=== PATIENT | female | born 1975 | race Hispanic/Latino ===

== ENCOUNTER 2017-03-15 22:43 | Emergency (ER) | payer BC ==
[2017-03-15 22:54] VITALS: BP 131/77; PULSE 72; RESP 16; TEMP 97.7; O2SAT 99
--- NOTE | 2017-03-15 23:47 | ED PDOC ---
HPI: CCC, URI, Sore Throat Time Seen by Provider: 03/15/17 22:56 Chief Complaint (Nursing): Cough, Cold, Congestion Chief Complaint (Provider): Cough, cold, congestion History Per: Patient History/Exam Limitations: no limitations Onset/Duration Of Symptoms: Days (x1 week) Current Symptoms Are (Timing): Still Present Location Of Pain: None Sick Contacts (Context): None Associated Symptoms: Fever (subjective), Chills (subjective), Cough Ear Symptoms: Bilateral: None Severity: Mild Additional Complaint(s): Estefanía Swanson is a 42 year old female, with a past medical history of bilateral Pneumonia last year, who presents to the emergency department complaining of cough, subjective fever and chills onset for x1 week. She denies any other medical complaints. PMD: None provided. Past Medical History Reviewed: Historical Data, Nursing Documentation, Vital Signs Vital Signs: Last Vital Signs Temp 97.7 F 03/15/17 22:51 Pulse 72 03/15/17 22:51 Resp 16 03/15/17 22:51 BP 131/77 03/15/17 22:51 Pulse Ox 99 03/15/17 23:58 - Medical History PMH: Pneumonia Denies: HIV, Chronic Kidney Disease - Surgical History Surgical History: No Surg Hx - Family History Family History: States: Unknown Family Hx - Home Medications Home Medications: Ambulatory Orders Medication Instructions Recorded Azithromycin [Z-Herminio] 250 mg PO DAILY #6 tab 03/16/17 Fluticasone Nasal [Flonase] 1 actuation NS BID #1 spr 03/16/17 - Allergies Allergies/Adverse Reactions: Allergies Allergy/AdvReac Type Severity Reaction Status Date / Time No Known Allergies Allergy Verified 05/12/15 18:59 Review of Systems ROS Statement: Except As Marked, All Systems Reviewed And Found Negative Constitutional: Positive for: Fever (subjective), Chills (subjective) Respiratory: Positive for: Cough Physical Exam - Reviewed Nursing Documentation Reviewed: Yes Vital Signs Reviewed: Yes - Physical Exam Appears: Positive for: Well, Non-toxic Head Exam: Positive for: ATRAUMATIC, NORMAL INSPECTION Skin: Positive for: Normal Color, Warm, Dry Eye Exam: Positive for: Normal appearance, EOMI, PERRL ENT: Positive for: Normal ENT Inspection Neck: Positive for: Normal, Painless ROM, Supple Cardiovascular/Chest: Positive for: Regular Rate, Rhythm Respiratory: Positive for: Normal Breath Sounds (active cough during exam). Negative for: Respiratory Distress Gastrointestinal/Abdominal: Positive for: Normal Exam, Soft. Negative for: Tenderness Back: Positive for: Normal Inspection. Negative for: L CVA Tenderness, R CVA Tenderness Extremity: Positive for: Normal ROM. Negative for: Pedal Edema, Deformity, Swelling Neurologic/Psych: Positive for: Alert, Oriented - ECG O2 Sat by Pulse Oximetry: 99 (RA) Pulse Ox Interpretation: Normal Medical Decision Making Medical Decision Making: Initial Impression: Viral infection Initial Plan: --Chest two views (PA/LAT) [RAD] --reevaluation 23:55 --Upon provider evaluation patient is medically stable, and requires no further treatment in the ED at this time. Patient will be discharged home. Counseling was provided and all questions were answered regarding diagnosis and need for follow up. There is agreement to discharge plan. Return if symptoms persist or worsen. Told patient to monitor for 48 hours for high fevers, will give rx for azithromycin in case fever develops and cough worsens but not to fill if symptoms improve. Scribe Attestation: Documented by Jimbo Finney, acting as a scribe for Brandan Parish MD Provider Scribe Attestation: All medical record entries made by the Scribe were at my direction and personally dictated by me. I have reviewed the chart and agree that the record accurately reflects my personal performance of the history, physical exam, medical decision making, and the department course for this patient. I have also personally directed, reviewed, and agree with the discharge instructions and disposition. Disposition - Clinical Impression Clinical Impression: Cough - Patient ED Disposition Is Patient to be Admitted: No - Disposition Referrals: [facility] [place] [Outside] Disposition: Routine/Home Disposition Time: 23:55 Condition: IMPROVED Prescriptions: Azithromycin [Z-Herminio] 250 mg PO DAILY #6 tab Fluticasone Nasal [Flonase] 1 actuation NS BID #1 spr Instructions: Upper Respiratory Infection (ED) Forms: [employer] (Vietnamese)
--- NOTE | 2017-03-16 10:52 | RAD ---
HISTORY: hx of bilateral PNA, p/w cough, subj fever COMPARISON: Chest radiograph dated 05/08/2016 TECHNIQUE: Chest PA and lateral FINDINGS: LUNGS: No active pulmonary disease. PLEURA: No significant pleural effusion identified. No pneumothorax apparent. CARDIOVASCULAR: Normal. OSSEOUS STRUCTURES: No significant abnormalities. VISUALIZED UPPER ABDOMEN: Normal. OTHER FINDINGS: None. IMPRESSION: No active disease.
== END 2017-03-16 00:31 | disposition home or self-care (01) ==
LOC: H.ER 22:43
DX: B34.9 Viral infection, unspecified (principal)

== ENCOUNTER 2017-12-28 11:02 | Emergency (ER) | payer BC ==
[2017-12-28 11:35] VITALS: BP 110/67; PULSE 91; RESP 20; TEMP 98.4; O2SAT 98
--- NOTE | 2017-12-28 12:28 | ED PDOC ---
HPI: Influenza Time Seen by Provider: 12/28/17 12:02 Chief Complaint: Cough, Cold, Congestion Chief Complaint (Provider): Cough, Cold, Congestion History Per: Patient Exam Limitations: no limitations Have you had recent travel within the past 21 days to any of: No Onset/Duration Of Symptoms: Days (x3 days ago ) Symptoms include: fever (tactile), bodyaches, sore throat, cough, nasal congestion. denies: chest pain Sick Contacts (Context): None Additional complaint(s):: Estefanía Gutierrez is a 42 year old female with a past medical history of bilateral pneumonia (2017), who presents to the emergency department complaining of having body ache, tactile fever, cough, sore throat, and nasal congestion, onset x3 days ago. Patient states that symptoms worsened over the weekend but have improved since this morning. She states she has taken "natural medications" such as mushroom extract and garlic but has not taken any Motrin or Tylenol. Patient further reports that she is planning to go to [place] tomorrow. She denies having any sick contact, recent travel, chest pain, shortness of breath, hemoptysis, or any other medical complaints. PMD: Dr. Destiny Miller Past Medical History Reviewed: Historical Data, Nursing Documentation, Vital Signs Vital Signs: Last Vital Signs Temp 98.4 F 12/28/17 11:31 Pulse 91 H 12/28/17 11:31 Resp 20 12/28/17 11:31 BP 110/67 12/28/17 11:31 Pulse Ox 98 12/28/17 11:31 - Medical History PMH: Pneumonia (bilateral ) Denies: HIV, Chronic Kidney Disease - Surgical History Surgical History: No Surg Hx - Family History Family History: States: Unknown Family Hx - Home Medications Home Medications: Ambulatory Orders Medication Instructions Recorded Azithromycin [Z-Herminio] 250 mg PO DAILY #6 tab 03/16/17 Fluticasone Nasal [Flonase] 1 actuation NS BID #1 spr 03/16/17 Azithromycin [Zithromax] 250 mg PO DAILY #6 tab 12/28/17 Promethazine DM [Phenergan DM 5 - 10 ml PO Q8 PRN #120 ml 12/28/17 Syrup] - Allergies Allergies/Adverse Reactions: Allergies Allergy/AdvReac Type Severity Reaction Status Date / Time No Known Allergies Allergy Verified 05/12/15 18:59 Review of Systems ROS Statement: Except As Marked, All Systems Reviewed And Found Negative Constitutional: Positive for: Fever (tactile ) ENT: Positive for: Nose Congestion Cardiovascular: Negative for: Chest Pain Respiratory: Positive for: Cough, Shortness of Breath, Other (sore throat). Negative for: Hemoptysis Musculoskeletal: Positive for: Other (bodyache ) Skin: Negative for: Rash Physical Exam - Reviewed Nursing Documentation Reviewed: Yes Vital Signs Reviewed: Yes - Physical Exam Appears: Positive for: Well Head Exam: Positive for: ATRAUMATIC, NORMOCEPHALIC Skin: Positive for: Normal Color, Warm, Dry Eye Exam: Positive for: Normal appearance, EOMI, PERRL ENT: Positive for: Normal ENT Inspection Neck: Positive for: Normal, Painless ROM, Supple Cardiovascular/Chest: Positive for: Regular Rate, Rhythm. Negative for: Murmur Respiratory: Positive for: Normal Breath Sounds. Negative for: Crackles, Rales, Respiratory Distress Gastrointestinal/Abdominal: Positive for: Normal Exam, Bowel Sounds, Soft. Negative for: Tenderness Back: Positive for: Normal Inspection. Negative for: L CVA Tenderness, R CVA Tenderness, Vertebral Tenderness Extremity: Positive for: Normal ROM. Negative for: Tenderness, Deformity, Swelling Neurologic/Psych: Positive for: Alert, Oriented (x3) Medical Decision Making Medical Decision Making: Initial Time: 12:21 Initial Plan: --Rapid strep Group A antigen --Influenza A B Rapid flu, rapid strep: negative. Results d/w patient. Scribe Attestation: Documented by Miguel Ashby, acting as a scribe for Xavier Tse Provider Scribe Attestation: All medical record entries made by the Scribe were at my direction and perso loly dictated by me. I have reviewed the chart and agree that the record accurately reflects my personal performance of the history, physical exam, medical decision making, and the department course for this patient. I have also personally directed, reviewed, and agree with the discharge instructions and disposition. - ECG O2 Sat by Pulse Oximetry: 98 (RA) Pulse Ox Interpretation: Normal Disposition - Clinical Impression Clinical Impression: Upper respiratory infection - Patient ED Disposition Is Patient to be Admitted: No - Disposition Disposition: Routine/Home Disposition Time: 13:43 Condition: STABLE Additional Instructions: ESTEFANÍA GUTIERREZ, thank you for letting us take care of you today. Your provider was Clint Albarado III, DO and you were treated for CONGESTION. The emergency medical care you received today was directed at your acute symptoms. If you were prescribed any medication, please fill it and take as directed. It may take several days for your symptoms to resolve. Return to the Emergency Department if your symptoms worsen, do not improve, or if you have any other problems. Please contact your doctor or call one of the physicians/clinics you have been referred to that are listed on the Patient Visit Information form that is included in your discharge packet. Bring any paperwork you were given at discharge with you along with any medications you are taking to your follow up visit. Our treatment cannot replace ongoing medical care by a primary care provider outside of the emergency department. Thank you for allowing the [facility] team to be part of your care today. If you had an X-Ray or CT scan: A Radiologist will review the ED reading if any change in treatment is needed we will contact you. If you had a blood, urine, or wound culture: It will take several days for the results, if any change in treatment is needed we will contact you. If you had an STI test: It will take 48 hours for the results. Please call after 1 week if you have not heard back. Prescriptions: Azithromycin [Zithromax] 250 mg PO DAILY #6 tab Promethazine DM [Phenergan DM Syrup] 5 - 10 ml PO Q8 PRN #120 ml PRN Reason: Cough Instructions: Viral Upper Respiratory Infection, Adult (DC) Forms: [employer] (Albanian)
== END 2017-12-28 13:47 | disposition home or self-care (01) ==
LOC: H.ER 11:02
DX: J06.9 Acute upper respiratory infection, unspecified (principal)

== ENCOUNTER 2018-05-22 03:39 | Emergency (ER) | payer BC ==
[2018-05-22 03:56] VITALS: BP 99/63; PULSE 78; TEMP 97.5; O2SAT 97
[2018-05-22 03:57] VITALS: BMI 19.8
[2018-05-22 04:01] VITALS: RESP 20
--- NOTE | 2018-05-22 05:16 | ED PDOC ---
HPI: Chest Pain Chief Complaint (Nursing): Chest Pain History Per: Patient History/Exam Limitations: no limitations Onset/Duration Of Symptoms: Days Quality: Burning, Pressure Additional Complaint(s): Pt is a 43 y/o female no pmhx presenting to ED with complaints of cough, congestion, chest pain, sob, and fevers. States for the past week she has had upper respiratory tract symptoms including congestion, productive cough (yellow sputum), subjective fevers, and occasional sob when walking many blocks. 2 days ago, she states she started experiencing chest pain localized to midsternum to which she describes as burning, radiating bilaterally, positional (worse when standing, better when lying flat), and described it as occasionally feeling like a belt wrapped around her heart. On ROS, she admits to urinary urgency, denies dysuria. PMD: Denies PMHX: Denies Hospitalizations: Pt was hospitalized in June 04 for Bilateral multifocal pneumonia and hyponatremia complications with ARDS Medications: Denies FMHx: Father from Pancreatic Ca Social: Denies smoking, alcohol, or drug use Past Medical History Reviewed: Historical Data, Nursing Documentation, Vital Signs Vital Signs: Last Vital Signs Temp 97.5 F L 05/22/18 03:58 Pulse 78 05/22/18 03:58 Resp 20 05/22/18 03:58 BP 99/63 L 05/22/18 03:58 Pulse Ox 97 05/22/18 03:58 - Medical History PMH: Pneumonia (bilateral ) Denies: HIV, Chronic Kidney Disease - Surgical History Other surgeries: Liposuction - Family History Family History: States: Unknown Family Hx - Living Arrangements Living Arrangements: With Family - Home Medications Home Medications: Ambulatory Orders Medication Instructions Recorded Azithromycin [Z-Herminio] 250 mg PO DAILY #6 tab 03/16/17 Fluticasone Nasal [Flonase] 1 actuation NS BID #1 spr 03/16/17 Azithromycin [Zithromax] 250 mg PO DAILY #6 tab 12/28/17 Promethazine DM [Phenergan DM 5 - 10 ml PO Q8 PRN #120 ml 12/28/17 Syrup] - Allergies Allergies/Adverse Reactions: Allergies Allergy/AdvReac Type Severity Reaction Status Date / Time No Known Allergies Allergy Verified 05/22/18 04:01 MELQUIADES Risk Score for UA/NSTEMI - MELQUIADES Risk Score Age > 64: NO 3 or more CAD Risk Factors: NO Known CAD (Stenosis greater than 50%): NO Aspirin use in past 7 days: NO Severe Angina: NO EKG ST changes greater than 0.5mm: NO Positive Cardiac Marker: NO MELQUIADES Score: 0 Risk %: 5% Wells Criteria for PE - Wells Criteria for Pulmonary Embolism Clinical Signs and Symptoms of DVT: No P.E is #1 Diagnosis, or Equally Likely: No Heart Rate >100: No Immobilization at least 3 days;Surgery previous 4 weeks: No Previous, objectively diagnosed PE or DVT: No Hemoptysis: No Malignancy w/treatment within 6 months, or palliative: No (Low risk for PE, not indicated for further studies) Total Score: 0 Review of Systems Constitutional: Positive for: Fever. Negative for: Chills ENT: Positive for: Nose Congestion. Negative for: Ear Pain, Ear Discharge Cardiovascular: Positive for: Chest Pain Respiratory: Positive for: Cough Gastrointestinal: Negative for: Nausea, Vomiting, Abdominal Pain, Diarrhea Genitourinary Female: Negative for: Dysuria Skin: Negative for: Rash Physical Exam - Physical Exam Appears: Positive for: No Acute Distress (comfortable appearing female with occassional phlegm cough) Head Exam: Positive for: NORMAL INSPECTION Skin: Positive for: Normal Color Eye Exam: Positive for: Normal appearance ENT: Positive for: Nasal Congestion. Negative for: Pharyngeal Erythema, Tonsillar Exudate, Tonsillar Swelling Neck: Positive for: Normal Cardiovascular/Chest: Positive for: Regular Rate, Rhythm. Negative for: Murmur Respiratory: Positive for: Normal Breath Sounds, Rhonchi (clears with cough). Negative for: Accessory Muscle Use, Crackles, Rales, Wheezing Gastrointestinal/Abdominal: Positive for: Normal Exam, Bowel Sounds, Soft. Negative for: Tenderness Extremity: Positive for: Capillary Refill. Negative for: Pedal Edema Neurologic/Psych: Positive for: Alert, Oriented - Laboratory Results Result Diagrams: 05/22/18 05:25 05/22/18 05:25 - ECG O2 Sat by Pulse Oximetry: 97 Medical Decision Making Medical Decision Making: Pt is a 43 y/o female no pmhx presenting to ED with complaints of cough, congestion, chest pain, sob, and fevers. EKG- 1st degree block, no ischemic changes Chest portable Probnp Troponin Labs and imaging reviewed- all normal. Discussed findings with patients. Declined any supportive medications, stating she would like to use her herbal medications instead. Advised to get rest, plenty of fluids, and Tylenol/Motrin prn for fevers. Likely a viral syndrome, not in window period for flu treatment anyway. Pt verbalized understanding. Disposition - Clinical Impression Clinical Impression: Viral syndrome, Upper respiratory infection Counseled Patient/Family Regarding: Studies Performed, Diagnosis, Need For Followup - Disposition [facility]] Disposition: Routine/Home Disposition Time: 07:28 Condition: FAIR Additional Instructions: Advised to get rest, plenty of fluids, and Tylenol/Motrin prn for fevers. F/U with PMD, Referral at [facility] given Instructions: Viral Upper Respiratory Infection, Adult (DC) Forms: [employer] (Malay)
[2018-05-22 05:52] LABS: BASO # 0.1 K/uL (0.0-0.2); BASO % 0.7 % (0.0-2.0); EOS # 0.1 K/uL (0.0-0.7); EOS % 1.1 % (0.0-4.0); HEMOGLOBIN 13.3 g/dL (12.0-16.0); LYMPH # 1.6 K/uL (1.0-4.3); LYMPH % 18.8 % (20.0-40.0); MEAN CELL VOLUME 96.8 fl (81.0-99.0); MEAN CORPUSCULAR HGB CONC 34.1 g/dL (33.0-37.0); MONO # 0.5 K/uL (0.0-0.8); NEUT # 6.3 K/uL (1.8-7.0); NEUT % 73.4 % (50.0-75.0); RBC 4.01 Mil/uL (3.80-5.20); RED CELL DISTRIBUTION WIDTH 12.5 % (11.5-14.5); WHITE BLOOD COUNT 8.5 K/uL (4.8-10.8)
[2018-05-22 06:03] LABS: SQUAMOUS EPITHIAL 4 /hpf (0-5); URINE BACTERIA RARE (<OCC); URINE BILIRUBIN NEGATIVE (NEGATIVE); URINE BLOOD NEGATIVE (NEGATIVE); URINE CLARITY CLOUDY (Clear); URINE COLOR AMBER (YELLOW); URINE GLUCOSE (UA) NEG (NEGATIVE); URINE LEUKOCYTE ESTERASE NEG Leu/uL (Negative); URINE PROTEIN NEGATIVE (NEGATIVE); URINE UROBILINOGEN 0.2-1.0 mg/dL (0.2-1.0)
[2018-05-22 06:04] LABS: BLOOD UREA NITROGEN 14 mg/dl (7-17); CALCIUM 9.3 mg/dL (8.4-10.2); GFR NON-AFRICAN AMERICAN > 60
[2018-05-22 06:16] LABS: B-TYPE NATRIURETIC PEPTIDE 75.6 pg/ml (0-450)
--- NOTE | 2018-05-22 11:23 | RAD ---
Date of service: 05/22/2018 HISTORY: cough COMPARISON: Chest radiograph dated 03/15/2017. TECHNIQUE: Chest PA and lateral FINDINGS: LUNGS: No active pulmonary disease. PLEURA: No significant pleural effusion identified. No pneumothorax apparent. CARDIOVASCULAR: No aortic atherosclerotic calcification present. Normal cardiac size. No pulmonary vascular congestion. OSSEOUS STRUCTURES: No significant abnormalities. VISUALIZED UPPER ABDOMEN: Normal. OTHER FINDINGS: None. IMPRESSION: No active disease.
== END 2018-05-22 07:51 | disposition home or self-care (01) ==
LOC: H.ER 03:39
DX: J11.1 Influenza due to unidentified influenza virus with other respiratory manifestations (principal); J06.9 Acute upper respiratory infection, unspecified

== ENCOUNTER 2018-07-16 07:14 | Emergency (ER) | payer BC ==
[2018-07-16 07:20] VITALS: BMI 20.7
--- NOTE | 2018-07-16 08:46 | ED PDOC ---
HPI: Abdomen Time Seen by Provider: 07/16/18 07:30 Chief Complaint (Nursing): Abdominal Pain Chief Complaint (Provider): Abdominal pain History Per: Patient History/Exam Limitations: no limitations Onset/Duration Of Symptoms: Days Outside of [place] travel?: No Location Of Pain/Discomfort: RLQ, LLQ Additional History Per: Patient Additional Complaint(s): 43yo female, otherwise well, comes to ER reporting lower abdominal/pelvic pain x 2 days. She reports the pain is constant and worse with movement. Patient has not taken any medications stating "I do not like taking pain medication." Otherwise, no fever, chills, chest pain, nausea, vomiting, diarrhea, vaginal bleeding or discharge. No additional complaints. PMD: None Abnormal Vaginal Bleeding: No Past Medical History Reviewed: Historical Data, Nursing Documentation, Vital Signs Vital Signs: Last Vital Signs Temp 97.5 F L 07/16/18 07:20 Pulse 62 07/16/18 07:20 Resp 17 07/16/18 07:20 BP 104/61 07/16/18 07:20 Pulse Ox 99 07/16/18 07:20 - Medical History PMH: Pneumonia (bilateral ) Denies: HIV, Chronic Kidney Disease - Surgical History Surgical History: No Surg Hx - Family History Family History: States: Unknown Family Hx - Home Medications Home Medications: Ambulatory Orders Medication Instructions Recorded Azithromycin [Z-Herminio] 250 mg PO DAILY #6 tab 03/16/17 Fluticasone Nasal [Flonase] 1 actuation NS BID #1 spr 03/16/17 Azithromycin [Zithromax] 250 mg PO DAILY #6 tab 12/28/17 Promethazine DM [Phenergan DM 5 - 10 ml PO Q8 PRN #120 ml 12/28/17 Syrup] - Allergies Allergies/Adverse Reactions: Allergies Allergy/AdvReac Type Severity Reaction Status Date / Time No Known Allergies Allergy Verified 05/22/18 04:01 Review of Systems ROS Statement: Except As Marked, All Systems Reviewed And Found Negative Constitutional: Negative for: Fever, Chills Cardiovascular: Negative for: Chest Pain Gastrointestinal: Positive for: Abdominal Pain. Negative for: Nausea, Vomiting, Diarrhea Genitourinary Female: Positive for: Pelvic Pain. Negative for: Dysuria, Frequency, Hematuria, Vaginal Discharge, Vaginal Bleeding, Rash Physical Exam - Reviewed Nursing Documentation Reviewed: Yes Vital Signs Reviewed: Yes - Physical Exam Appears: Positive for: Non-toxic, No Acute Distress Head Exam: Positive for: ATRAUMATIC, NORMAL INSPECTION, NORMOCEPHALIC Skin: Positive for: Normal Color Eye Exam: Positive for: Normal appearance Neck: Positive for: Supple Cardiovascular/Chest: Positive for: Regular Rate, Rhythm. Negative for: Tachycardia Respiratory: Positive for: Normal Breath Sounds. Negative for: Respiratory Distress Gastrointestinal/Abdominal: Positive for: Soft. Negative for: Tenderness, Guarding, Rebound Back: Positive for: Normal Inspection. Negative for: L CVA Tenderness, R CVA Tenderness Extremity: Positive for: Normal ROM. Negative for: Pedal Edema Neurological/Psych: Positive for: Awake, Alert, Oriented (x 3) - Laboratory Results Result Diagrams: 07/16/18 13:07 07/16/18 13:07 - ECG O2 Sat by Pulse Oximetry: 99 (RA) Pulse Ox Interpretation: Normal Medical Decision Making Medical Decision Makinyo female with lower abdominal pain Plan: -- Upreg -- Udip -- US Pelvis 1229 Pelvic exam done with SHAUN Haney as physician practice manager. Cervix with erythema and irritation; no vaginal discharge noted. CT A/P ordered 1454 Patient resting in room comfortably, pending CT AP read Patient to be signed out to Dr. Hernandez. Scribe Attestation: Documented by Cristina Giraldo acting as a scribe for Renetta Garcia MD. Provider Attestation: All medical record entries made by the Scribe were at my direction and personally dictated by me. I have reviewed the chart and agree that the record accurately reflects my personal performance of the history, physical exam, medical decision making, and the department course for this patient. I have also personally directed, reviewed, and agree with the discharge instructions and disposition. Disposition - Clinical Impression Clinical Impression: Constipation, Ovarian cyst - Disposition Referrals: [facility] [place] [Outside] (PLEASE FOLLOWUP WITH YOUR DOCTOR OR [facility] IN 2-3 DAYS FOR REEVALUATION AND ANY FURTHER WORKUP OF YOUR CT SCAN FINDINGS.) Disposition: Transfer of Care Disposition Time: 15:00 Condition: STABLE Instructions: Constipation, Adult (DC), Acute Abdomen (Belly Pain), Adult (DC), Ovarian Cyst (DC) Patient Signed Over To: Nicky Hernandez Handoff Comments: Pending CT.
[2018-07-16 13:15] VITALS: RESP 18
[2018-07-16 13:15] LABS: BASO # 0.1 K/uL (0.0-0.2); BASO % 0.8 % (0.0-2.0); EOS % 0.4 % (0.0-4.0); HEMOGLOBIN 13.9 g/dL (12.0-16.0); LYMPH # 1.8 K/uL (1.0-4.3); LYMPH % 26.9 % (20.0-40.0); MEAN CELL VOLUME 97.8 fl (81.0-99.0); MEAN CORPUSCULAR HEMOGLOBIN 33.7 pg (27.0-31.0); MEAN CORPUSCULAR HGB CONC 34.4 g/dL (33.0-37.0); MEAN PLATELET VOLUME 8.2 fl (7.2-11.7); MONO # 0.2 K/uL (0.0-0.8); MONO % 3.5 % (0.0-10.0); NEUT # 4.7 K/uL (1.8-7.0); NEUT % 68.4 % (50.0-75.0); NRBC % 0.1 % (0.0-0.0); RBC 4.13 Mil/uL (3.80-5.20); WHITE BLOOD COUNT 6.8 K/uL (4.8-10.8)
[2018-07-16 13:24] LABS: ALB/GLOB RATIO 1.6 (1.0-2.1); ALBUMIN 4.3 g/dL (3.5-5.0); ALT/SGPT 22 U/L (9-52); AST/SGOT 20 U/L (14-36); BLOOD UREA NITROGEN 13 mg/dl (7-17); CALCIUM 9.3 mg/dL (8.4-10.2); GFR NON-AFRICAN AMERICAN > 60
--- NOTE | 2018-07-16 13:49 | US ---
Date of service: 07/16/2018 HISTORY: Pelvic pain COMPARISON: None available. TECHNIQUE: Transabdominal sonographic evaluation of the pelvis performed FINDINGS: UTERUS: Measures 7.2 x 4.1 x 3.1 cm. Anteverted. Normal in size and appearance. No fibroid or other mass lesion seen. ENDOMETRIUM: Measures 4.0 mm in diameter. Unremarkable. CERVIX: No cervical abnormality identified. RIGHT OVARY: Measures 2.9 x 2.8 x 2.0 cm. No solid mass. Normal flow. LEFT OVARY: Measures 3.4 x 4.2 x 2.6 cm. No solid mass. Normal flow. FREE FLUID: No significant free fluid noted. OTHER FINDINGS: None. IMPRESSION: Unremarkable pelvic ultrasound.
[2018-07-16] MEDS ORDERED: Sodium Chloride 0.9% 100 ML IV ONE (14:05)
[2018-07-16] MEDS ORDERED: Iohexol 300 100 ML IJ ONE (14:05)
--- NOTE | 2018-07-16 15:11 | ED PDOC ---
- Laboratory Results Result Diagrams: 07/16/18 13:07 07/16/18 13:07 Lab Results: Total Bilirubin 0.4 mg/dl (0.2-1.3) 07/16/18 13:07 AST 20 U/L (14-36) 07/16/18 13:07 ALT 22 U/L (9-52) 07/16/18 13:07 Alkaline Phosphatase 42 U/L (38-126) 07/16/18 13:07 Total Protein 7.0 G/DL (6.3-8.2) 07/16/18 13:07 Albumin 4.3 g/dL (3.5-5.0) 07/16/18 13:07 Globulin 2.7 gm/dL (2.2-3.9) 07/16/18 13:07 Albumin/Globulin Ratio 1.6 (1.0-2.1) 07/16/18 13:07 - ECG O2 Sat by Pulse Oximetry: 99 (RA) Pulse Ox Interpretation: Normal Medical Decision Making Medical Decision Makin 43yo female presenting to ER with lower abdominal pain Patient signed out to me by Dr. Garcia pending CT Abdomen Patient currently resting in room comfortably, and is in no acute distress. 1606 Accession No. : [id number] Patient Name / ID : MATT HERNANDEZ / [id number] Exam Date : 07/16/2018 14:04:42 ( Approved ) Study Comment : Sex / Age : F / 43Y Creator : kwabena wray Dictator : Siva Kenny MD Instructor Psychiatric Aide : Track Manager : Siva Kenny MD Approver2 : Report Date : 07/16/2018 14:28:39 My Comment : Date of service: 07/16/2018 PROCEDURE: CT abdomen and pelvis HISTORY: Lower abdominal pain COMPARISON: Correlation made with CT scan chest 05/16/2015 which image the upper abdomen TECHNIQUE: Contiguous axial images of the abdomen and pelvis performed following intravenous injection of approximately 90 cc Omnipaque 300 contrast material. Additional 2D sagittal and coronal reformats generated. Radiation dose: Total exam DLP = 475.71 mGy-cm. This CT exam was performed using one or more of the following dose reduction techniques: Automated exposure control, adjustment of the mA and/or kV according to patient size, and/or use of iterative reconstruction technique. FINDINGS: LOWER THORAX: Note that the there is partial obscuration of the including the heart due to lead shielding artifact over the upper torso.. The visualized lung bases appear clear. There is a small to medium size air-filled hiatal hernia. Heart size so far as can be seen appears unremarkable. Note that evaluation for pericardial effusion is limited. LIVER: Liver exhibits normal size. There is moderate diffuse fatty hepatic infiltration. Tiny approximately 4 mm elliptical shaped low-attenuation superior aspect right lobe liver too small to characterize. Second similar small lesion inferior aspect right lobe is present as well. These foci are of uncertain etiology though could represent small cysts or hemangiomas. Portal and splenic veins are opacified. GALLBLADDER AND BILE DUCTS: Gallbladder physiologically distended. No obvious intraluminal calculi PANCREAS: Pancreas appears grossly unremarkable without masses collections or calcifications. SPLEEN: Spleen exhibits normal size and attenuation pattern without mass collection or calcification. ADRENALS: Questionable mild enlargement left adrenal gland. KIDNEYS AND URETERS: Kidneys demonstrate symmetric nephrograms. No evidence of nephrolithiasis or hydronephrosis. No renal masses or collections are identified. VASCULATURE: Unremarkable. No aortic aneurysm. No aortic atherosclerotic calcification or mural plaque present. BOWEL: Evaluation of the bowel is somewhat limited due to the lack of oral contrast material. Stomach is incompletely distended with slight thick-walled appearance. Visualized loops of small bowel are not well delineated due to motion artifact. Large amount of stool is present within the colon consistent with fecal retention/constipation. APPENDIX: Normal appendix. PERITONEUM: No evidence of free intraperitoneal air. Note made of several (at least 4) varying sized elliptical shaped low-attenuation foci which exhibits Hounsfield units ranging from the single to mid single to mid teens consistent with fluid that appear to extend anteriorly and inferiorly out of the sacral foramina and at inferiorly into the posterior margin of the pelvis. These foci could represent large dilated nerve sleeve cyst or Tarlov cyst.. Recommend follow-up MRI could be performed further evaluation. LYMPH NODES: Unremarkable. No enlarged lymph nodes. BLADDER: Urinary bladder is physiologically distended. No evidence of intraluminal urinary bladder calculi. REPRODUCTIVE: Uterus appears grossly unremarkable.. Note is made of what may represent an involuting or hemorrhagic left adnexal cyst measuring approximately 15.2 mm. BONES: Mild multilevel degenerative spondylosis.. There is an elliptical somewhat peanut shaped expansile low-attenuation focus within the mid sacrum that felt to represent nerve sleeve/Tarlov cysts. In addition, there is also slight dilatatio n of several sacral exit foramina which also contain elliptical shaped fluid structures likely representing nerve sleeve cyst. Follow-up MRI recommended for further evaluation and confirmation. OTHER FINDINGS: None. IMPRESSION: Findings consistent with a small involuting or hemorrhagic left adnexal cyst. Constipation. There are at least 4 elliptical shaped for focal areas of low attenuation (of fluid like density which appear to extend inferiorly from the exit foramina into the posterior inferior margin of the pelvis. 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 See above discussion for additional details and findings. 1650 On reevaluation, patient reports feeling better. Discussed with patient CT findings, specifically the findings of constipation for which she states she will attempt a colonic (states used to do regularly in past with relief of symptoms.) Discussed with patient ovarian cyst findings as well as liver and pelvis cysts findings, and advised to follow up with PMD. Patient declines any medications at this time and states she has a preference for alternative medical management. She states she will follow up with PMD for above mentioned findings. Scribe Attestation: Documented by Cristina Giraldo acting as a scribe for Nicky Hernandez MD. Provider Attestation: All medical record entries made by the Scribe were at my direction and personally dictated by me. I have reviewed the chart and agree that the record accurately reflects my personal performance of the history, physical exam, medical decision making, and the department course for this patient. I have also personally directed, reviewed, and agree with the discharge instructions and disposition. Disposition - Clinical Impression Clinical Impression: Constipation, Ovarian cyst - POA Present On Arrival: None - Disposition Referrals: [facility] [place] [Outside] (PLEASE FOLLOWUP WITH YOUR DOCTOR OR [facility] IN 2-3 DAYS FOR REEVALUATION AND ANY FURTHER WORKUP OF YOUR CT SCAN FINDINGS.) Disposition: Routine/Home Disposition Time: 16:50 Condition: STABLE Instructions: Constipation, Adult (DC), Acute Abdomen (Belly Pain), Adult (DC), Ovarian Cyst (DC)
--- NOTE | 2018-07-16 15:45 | CT ---
Date of service: 07/16/2018 PROCEDURE: CT abdomen and pelvis HISTORY: Lower abdominal pain COMPARISON: Correlation made with CT scan chest 05/16/2015 which image the upper abdomen TECHNIQUE: Contiguous axial images of the abdomen and pelvis performed following intravenous injection of approximately 90 cc Omnipaque 300 contrast material. Additional 2D sagittal and coronal reformats generated. Radiation dose: Total exam DLP = 475.71 mGy-cm. This CT exam was performed using one or more of the following dose reduction techniques: Automated exposure control, adjustment of the mA and/or kV according to patient size, and/or use of iterative reconstruction technique. FINDINGS: LOWER THORAX: Note that the there is partial obscuration of the including the heart due to lead shielding artifact over the upper torso.. The visualized lung bases appear clear. There is a small to medium size air-filled hiatal hernia. Heart size so far as can be seen appears unremarkable. Note that evaluation for pericardial effusion is limited. LIVER: Liver exhibits normal size. There is moderate diffuse fatty hepatic infiltration. Tiny approximately 4 mm elliptical shaped low-attenuation superior aspect right lobe liver too small to characterize. Second similar small lesion inferior aspect right lobe is present as well. These foci are of uncertain etiology though could represent small cysts or hemangiomas. Portal and splenic veins are opacified. GALLBLADDER AND BILE DUCTS: Gallbladder physiologically distended. No obvious intraluminal calculi PANCREAS: Pancreas appears grossly unremarkable without masses collections or calcifications. SPLEEN: Spleen exhibits normal size and attenuation pattern without mass collection or calcification. ADRENALS: Questionable mild enlargement left adrenal gland. KIDNEYS AND URETERS: Kidneys demonstrate symmetric nephrograms. No evidence of nephrolithiasis or hydronephrosis. No renal masses or collections are identified. VASCULATURE: Unremarkable. No aortic aneurysm. No aortic atherosclerotic calcification or mural plaque present. BOWEL: Evaluation of the bowel is somewhat limited due to the lack of oral contrast material. Stomach is incompletely distended with slight thick-walled appearance. Visualized loops of small bowel are not well delineated due to motion artifact. Large amount of stool is present within the colon consistent with fecal retention/constipation. APPENDIX: Normal appendix. PERITONEUM: No evidence of free intraperitoneal air. Note made of several (at least 4) varying sized elliptical shaped low-attenuation foci which exhibits Hounsfield units ranging from the single to mid single to mid teens consistent with fluid that appear to extend anteriorly and inferiorly out of the sacral foramina and at inferiorly into the posterior margin of the pelvis. These foci could represent large dilated nerve sleeve cyst or Tarlov cyst.. Recommend follow-up MRI could be performed further evaluation. LYMPH NODES: Unremarkable. No enlarged lymph nodes. BLADDER: Urinary bladder is physiologically distended. No evidence of intraluminal urinary bladder calculi. REPRODUCTIVE: Uterus appears grossly unremarkable.. Note is made of what may represent an involuting or hemorrhagic left adnexal cyst measuring approximately 15.2 mm. BONES: Mild multilevel degenerative spondylosis.. There is an elliptical somewhat peanut shaped expansile low-attenuation focus within the mid sacrum that felt to represent nerve sleeve/Tarlov cysts. In addition, there is also slight dilatation of several sacral exit foramina which also contain elliptical shaped fluid structures likely representing nerve sleeve cyst. Follow-up MRI recommended for further evaluation and confirmation. OTHER FINDINGS: None. IMPRESSION: Findings consistent with a small involuting or hemorrhagic left adnexal cyst. Constipation. There are at least 4 elliptical shaped for focal areas of low attenuation (of fluid like density which appear to extend inferiorly from the exit foramina into the posterior inferior margin of the pelvis. 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 See above discussion for additional details and findings.
[2018-07-16 17:19] VITALS: BP 105/45; PULSE 70; TEMP 97.5
[2018-07-16 22:33] VITALS: O2SAT 99
== END 2018-07-16 16:54 | disposition home or self-care (01) ==
LOC: H.ER 07:14
DX: K59.00 Constipation, unspecified (principal); N83.209 Unspecified ovarian cyst, unspecified side
CPT/HCPCS: 74177; 76856; 80053; 81025; 85025; 87070; 99285; Q9967